=== PATIENT | female | born 1990 | race American Indian/Alaskan Native ===

== ENCOUNTER 2020-04-26 19:36 | Outpatient (CLI) | payer MEDICAID ==
[2020-04-26 20:04] VITALS: BP 140/69
== END 2020-04-26 21:10 | disposition home or self-care (01) ==
LOC: TRG 19:36 → APU 19:38 → TRG 21:10
PROVIDERS: ATTEND Obstetrics & Gynecology
DX: O02.89 Other abnormal products of conception (principal); Z3A.32 32 weeks gestation of pregnancy
CPT/HCPCS: 59025

== ENCOUNTER 2020-06-09 15:21 | Inpatient (IN) | payer MEDICAID ==
--- NOTE | 2020-06-09 15:38 | History and Physical Report ---
History of Present Illness Date of examination: 06/09/20 (pt sent from [facility] for delivery) Date of admission: 06/09/20 15:21 Chief complaint: Caller: Dr Clinton [place] Summary of Call: pt now has severe range BP Recommends admit and deliver L&D Chg Nurse notified of pt's admission Dr Story aware waiting for consult report from [facility] History of present illness: EDC Confirmation: 06/15/2020 Past History : 1 Term Births: 0 Premature Births: 0 Living Children: 0 Para: 0 Mult. Births: 0 Prev : 0 Aborta: 0 Elect. Ab: 0 Spont. Ab: 0 Ectopics: 0 Past Medical History: Reviewed history and no changes required: Negative Past Medical History Past Surgical History: negative Past Medical History Anesthesia Complications: negative Anemia: negative Autoimmune Disorder: negative Bleeding Disorder: negative Blood Transfusions: negative Breast Disease: negative Diabetes: negative Heart Disease: negative Hypertension: negative Hepatitis/Liver Disease: negative Kidney Disease/UTI: negative Neurologic/Epilepsy/Migraines: negative Phlebitis/Varicosities: negative Psychiatric: negative Pulmonary Disease/Asthma: negative Thyroid Disease: negative Hospitalizations: negative 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 of genital herpes: no Partner hx. of genital herpes: no Rash, Viral, or Febrile illness since last LMP? no Varicella/Chicken Pox Status: Unknown TB Risk: no Genetic History Congenital Heart Defect: Mom: no Dad: no Darlene Disease: Mom: no Dad: no Thalassemia Mom: no Dad: no Neural Tube Defect Mom: no Dad: no Down's Syndrome Mom: no Dad: no Gregory-Sachs Mom: no Dad: no Sickle Cell Disease/Trait Mom: no Dad: no Hemophilia Mom: no Dad: no Muscular Dystrophy Mom: no Dad: no Cystic Fibrosis Mom: no Dad: no Ogle Chorea Mom: no Dad: no Mental Retardation Mom: no Dad: no Fragile X Mom: no Dad: no Other Genetic/Chromosomal Disorder Mom: no Dad: no Child w/other defect Mom: no Dad: no Enviromental Exposures Xray Exposure: no Medication, drug, or alcohol use since LMP: no Chemical/Other Exposure: no Exposure to Cat Liter: no Hx of Parvovirus (Fifth Disease): no Occupational Exposure to Children: none Active Medications: None Current Allergies: No known allergies Past History - Obstetrical History Expected Date of Delivery: 06/15/20 Actual Gestation: 39 Week(s) 2 Day(s) : 1 Para: 0 Hx # Term Pregnancies: 0 Number of Pregnancies: 0 Spontaneous Abortions: 0 Induced : 0 Number of Living Children: 0 Medications and Allergies Allergies Allergy/AdvReac Type Severity Reaction Status Date / Time No Known Allergies Allergy Unverified 04/26/20 20:13 Home Medications Medication Instructions Recorded Confirmed Last Taken Type RX: No Known Home Medications [No 06/09/20 06/09/20 Unknown History Reported Home Medications] - Physical Exam Breasts: Cardiovascular: Regular rate, Normal S1, Normal S2 Abdomen: Positive: normal appearance, soft, normal bowel sounds. Negative: distention, tenderness Genitourinary (Female): Positive: normal external genitalia Vulva: both: normal Vagina: Positive: normal moisture. Negative: discharge Cervix: Negative: lesion, discharge Uterus: Positive: normal size, normal contour Adnexa: both: normal Anus/Rectum: Positive: normal perianal skin, heme negative. Negative: rectal mass, hemorrhoids Extremities: Positive: edema Deep Tendon Reflex Grade: Normal +2 - Obstetrical FHR: category 1 Uterine Contraction Monitor Mode: External Uterine Contraction Pattern: Irregular Uterine Tone Measurement Phase: Resting Uterine Contraction Intensity: Mild Results Result Diagrams: 06/09/20 16:32 06/09/20 16:32 All other labs normal. HBsAg Screen Negative Negative *1 RPR Non Reactive Non Reactive *2 Rubella Antibodies, IgG 11.50 index Immune >0.99 *3 Non-immune <0.90 Equivocal 0.90 - 0.99 Immune >0.99 ABO Grouping B *4 Rh Factor Positive *5 Please note: Prior records for this patient's ABO / Rh type are not available for additional verification. Antibody Screen Negative Negative *6 WBC 10.4 x10E3/uL 3.4-10.8 *7 RBC 4.38 x10E6/uL 3.77-5.28 *8 Hemoglobin 11.3 g/dL 11.1-15.9 *9 Hematocrit 36.5 % 34.0-46.6 *10 MCV 83 fL 79-97 *11 MCH [L] 25.8 pg 26.6-33.0 *12 MCHC [L] 31.0 g/dL 31.5-35.7 *13 RDW 14.9 % 11.7-15.4 *14 Platelets 263 x10E3/uL 150-450 *15 Neutrophils 72 % Not Estab. *16 Lymphs 21 % Not Estab. *17 Monocytes 6 % Not Estab. *18 Eos 1 % Not Estab. *19 Basos 0 % Not Estab. *20 ! Immature Cells <No Reported Value> *21 Neutrophils (Absolute) [H] 7.4 x10E3/uL 1.4-7.0 *22 Lymphs (Absolute) 2.2 x10E3/uL 0.7-3.1 *23 Monocytes(Absolute) 0.7 x10E3/uL 0.1-0.9 *24 Eos (Absolute) 0.2 x10E3/uL 0.0-0.4 *25 Baso (Absolute) 0.0 x10E3/uL 0.0-0.2 *26 ! Immature Granulocytes 0 % Not Estab. *27 ! Immature Grans (Abs) 0.0 x10E3/uL 0.0-0.1 *28 ! NRBC <No Reported Value> *29 Hematology Comments: <No Reported Value> *30 Tests: (2) HIV Ag/Ab with Reflex ([id number]) HIV Screen 4th Generation wRfx Non Reactive Non Reactive *31 Tests: (3) HCV Ab w/Rflx to Verification ([id number]) ! HCV Ab <0.1 s/co ratio 0.0-0.9 *32 Tests: (4) Comment: ([id number]) ! Comment: [facility] *33 Non reactive HCV antibody screen is consistent with no HCV infection, unless recent infection is suspected or other evidence exists to indicate HCV infection. Assessment and Plan Pt sent from [facility] office with severe range BP. Recommendation to delivery - start IOL. BPs found to be wnl. Will monitor, collect labs, and follow BP. Dr Story aware
[2020-06-09] MEDS ORDERED: ACETAMINOPHEN 325 MG TAB PO PRN (15:40)
[2020-06-09] MEDS ORDERED: LIDOCAINE (2%) 20 MG/1 ML VIAL 20 ML MDV INFILTRATI ONE (15:40)
[2020-06-09] MEDS ORDERED: MAGNESIUM SULFATE 4 GM/100 ML BAG IV ONE (15:40)
[2020-06-09] MEDS ORDERED: ONDANSETRON 4 MG/2 ML INJ IV PRN (15:40)
[2020-06-09] MEDS ORDERED: MINERAL OIL 30 ML ORAL LIQD PO PRN (15:40)
[2020-06-09] MEDS ORDERED: ePHEDrine SULFATE 50 MG/1 ML INJ IV PRN (15:40)
[2020-06-09] MEDS ORDERED: fentaNYL 100 MCG/2 ML INJ IV PRN (15:40)
[2020-06-09] MEDS ORDERED: TERBUTALINE 1 MG/1 ML INJ SUB-Q PRN (15:40)
[2020-06-09] MEDS ORDERED: LACTATED RINGERS 1,000 ML IV SCH (16:00)
[2020-06-09] MEDS ORDERED: MAGNESIUM SULFATE 40GM/1000ML 40 GM/1,000 ML BAG IV SCH (16:00)
[2020-06-09] MEDS ORDERED: OXYTOCIN DRIP 30 UNITS/500 ML BAG IV SCH (16:00)
[2020-06-09 17:08] LABS: Hematocrit 34.3 % (30.3-42.9); Hemoglobin 11.1 gm/dl (10.1-14.3); Mean Corpuscular HGB Conc 32 % (30-34); Mean Corpuscular Volume 80 fl (79-97); Platelet Count 231 K/mm3 (140-440); Red Blood Count 4.31 M/mm3 (3.65-5.03); Red Cell Distribution Width 16.2 % (13.2-15.2)
[2020-06-09 17:17] LABS: Alanine Aminotransferase 9 units/L (7-56); Albumin 3.5 g/dL (3.9-5); Blood Urea Nitrogen 7 mg/dL (7-17); Calcium 9.1 mg/dL (8.4-10.2); Hemolysis Index 7
[2020-06-09 17:18] LABS: BUN/Creatinine Ratio 12; Bilirubin,Direct < 0.2 mg/dL (0-0.2)
[2020-06-09 17:26] LABS: INR 0.98 (0.87-1.13)
[2020-06-09 17:27] LABS: Partial Thromboplastin Time 28.6 Sec. (24.2-36.6)
[2020-06-09] MEDS ORDERED: DINOPROSTONE 10 MG VAG SUPP VG ONE (20:00)
--- NOTE | 2020-06-09 20:20 | Event Note ---
Date: 06/09/20 Pt advised that due to her blood pressures being normal range and having no sx will hold magnesium at this time. Plan of care d/w pt and s/o. All questions were addressed and answered.
[2020-06-10] MEDS ORDERED: ZOLPIDEM 5 MG TAB PO PRN (00:20)
[2020-06-10] MEDS ORDERED: BUTORPHANOL 2 MG/1 ML INJ ONE (05:24)
[2020-06-10] MEDS ORDERED: BUTORPHANOL 2 MG/1 ML INJ IV PRN (05:33)
--- NOTE | 2020-06-10 07:35 | Progress Note ---
Assessment and Plan sitting on side of bed off monitor. Plan of care discussed for quick shower and meal. Plan to start pitocin 4mU x4mU @ 0800. pt given rubio. plan of care discussed with LEISA ISAACS. - Patient Problems (1) Gestational HTN Current Visit: Yes Status: Acute Qualifiers: Trimester: third trimester Qualified Code(s): O13.3 - Gestational [-induced] hypertension without significant proteinuria, third trimester (2) 39 weeks gestation of Current Visit: Yes Status: Acute (3) BMI 40.0-44.9, adult Current Visit: Yes Status: Acute Subjective - Subjective Date of service: 06/10/20 Principal diagnosis: IUP @ , IOL for GHTN Patient reports: movement normal, no new complaints Objective - Vital Signs Vital Signs: Vital Signs - 12hr 06/09/20 06/09/20 06/09/20 19:32 19:37 19:42 Temperature Pulse Rate 83 95 H 75 Respiratory Rate Blood Pressure O2 Sat by Pulse 100 99 99 Oximetry 06/09/20 06/09/20 06/09/20 19:45 19:47 19:52 Temperature Pulse Rate 82 81 72 Respiratory Rate Blood Pressure 134/70 O2 Sat by Pulse 99 100 Oximetry 06/09/20 06/09/20 06/09/20 19:57 20:02 20:07 Temperature Pulse Rate 85 85 79 Respiratory Rate Blood Pressure O2 Sat by Pulse 98 100 100 Oximetry 06/09/20 06/09/20 06/09/20 20:12 20:17 20:31 Temperature Pulse Rate 88 82 78 Respiratory Rate Blood Pressure O2 Sat by Pulse 100 96 99 Oximetry 06/09/20 06/09/20 06/09/20 20:36 20:41 20:43 Temperature Pulse Rate 94 H 74 70 Respiratory Rate Blood Pressure O2 Sat by Pulse 99 99 84 Oximetry 06/09/20 06/09/20 06/09/20 20:45 20:46 20:51 Temperature Pulse Rate 71 75 78 Respiratory Rate Blood Pressure 133/65 O2 Sat by Pulse 99 100 Oximetry 06/09/20 06/09/20 06/09/20 20:56 21:01 21:06 Temperature Pulse Rate 81 75 76 Respiratory Rate Blood Pressure O2 Sat by Pulse 100 99 100 Oximetry 06/09/20 06/09/20 06/09/20 21:11 21:16 21:21 Temperature Pulse Rate 77 74 84 Respiratory Rate Blood Pressure O2 Sat by Pulse 100 99 100 Oximetry 06/09/20 06/09/20 06/09/20 21:26 21:31 21:36 Temperature Pulse Rate 85 83 79 Respiratory Rate Blood Pressure O2 Sat by Pulse 99 100 99 Oximetry 06/09/20 06/09/20 06/09/20 21:41 21:46 21:51 Temperature Pulse Rate 78 78 79 Respiratory Rate Blood Pressure 117/62 O2 Sat by Pulse 99 99 99 Oximetry 06/09/20 06/09/20 06/09/20 21:56 22:01 22:06 Temperature Pulse Rate 78 75 70 Respiratory Rate Blood Pressure O2 Sat by Pulse 100 100 100 Oximetry 06/09/20 06/09/20 06/09/20 22:11 22:16 22:21 Temperature Pulse Rate 73 74 73 Respiratory Rate Blood Pressure O2 Sat by Pulse 100 100 100 Oximetry 06/09/20 06/09/20 06/09/20 22:26 22:31 22:36 Temperature Pulse Rate 74 75 72 Respiratory Rate Blood Pressure O2 Sat by Pulse 100 100 100 Oximetry 06/09/20 06/09/20 06/09/20 22:41 22:46 22:51 Temperature Pulse Rate 64 66 79 Respiratory Rate Blood Pressure 124/72 O2 Sat by Pulse 99 98 99 Oximetry 06/09/20 06/09/20 06/09/20 22:56 23:01 23:06 Temperature Pulse Rate 78 76 70 Respiratory Rate Blood Pressure O2 Sat by Pulse 100 100 99 Oximetry 06/09/20 06/09/20 06/09/20 23:16 23:21 23:26 Temperature Pulse Rate 72 75 72 Respiratory Rate Blood Pressure O2 Sat by Pulse 99 99 98 Oximetry 06/09/20 06/09/20 06/09/20 23:28 23:31 23:36 Temperature Pulse Rate 52 L 78 75 Respiratory Rate Blood Pressure O2 Sat by Pulse 82 L 100 99 Oximetry 06/09/20 06/09/20 06/09/20 23:41 23:46 23:51 Temperature Pulse Rate 74 80 79 Respiratory Rate Blood Pressure 127/64 O2 Sat by Pulse 98 100 99 Oximetry 06/09/20 06/10/20 06/10/20 23:56 00:01 00:45 Temperature Pulse Rate 91 H 72 73 Respiratory Rate Blood Pressure 122/90 O2 Sat by Pulse 87 98 Oximetry 06/10/20 06/10/20 06/10/20 00:56 01:47 02:45 Temperature 98.1 F Pulse Rate 67 136 H Respiratory 18 Rate Blood Pressure 119/66 133/78 O2 Sat by Pulse Oximetry - Exam Breasts: normal Cardiovascular: Regular rate Lungs: Clear to auscultation Abdomen: Present: normal appearance, soft - Labs Labs: Abnormal Labs 06/09/20 06/09/20 16:32 16:32 WBC 11.8 H MCH 26 L RDW 16.2 H Sodium 135 L Carbon Dioxide 20 L Alkaline Phosphatase 132 H Albumin 3.5 L Laboratory Results - last 24 hr 06/09/20 06/09/20 06/09/20 16:32 16:32 16:32 WBC 11.8 H RBC 4.31 Hgb 11.1 Hct 34.3 MCV 80 MCH 26 L MCHC 32 RDW 16.2 H Plt Count 231 PT 13.2 INR 0.98 APTT 28.6 Sodium 135 L Potassium 3.8 Chloride 100.4 Carbon Dioxide 20 L Anion Gap 18 BUN 7 Creatinine 0.6 Estimated GFR > 60 BUN/Creatinine Ratio 12 Glucose 78 Uric Acid Calcium 9.1 Total Bilirubin < 0.20 Direct Bilirubin < 0.2 Indirect Bilirubin 0.0 AST 11 ALT 9 Alkaline Phosphatase 132 H Total Protein 7.1 Albumin 3.5 L Albumin/Globulin Ratio 1.0 Syphilis IgG Antibody Blood Type Antibody Screen 06/09/20 06/09/20 06/09/20 16:32 16:32 16:32 WBC RBC Hgb Hct MCV MCH MCHC RDW Plt Count PT INR APTT Sodium Potassium Chloride Carbon Dioxide Anion Gap BUN Creatinine Estimated GFR BUN/Creatinine Ratio Glucose Uric Acid 4.5 Calcium Total Bilirubin Direct Bilirubin Indirect Bilirubin AST ALT Alkaline Phosphatase Total Protein Albumin Albumin/Globulin Ratio Syphilis IgG Antibody Nonreactive Blood Type B POSITIVE Antibody Screen Negative
[2020-06-10] MEDS ORDERED: OXYTOCIN DRIP 30 UNITS/500 ML BAG IV ONE (08:00)
[2020-06-10] MEDS: LACTATED RINGERS 1,000 ML IV SCH ×4 (08:33→17:55)
[2020-06-10] MEDS ORDERED: DEXMEDETOMIDINE 200 MCG/2 ML VIAL IV ONE ×2 (10:52→20:04)
[2020-06-10] MEDS ORDERED: NALOXONE 2 MG/2 ML INJ IV PRN (10:57)
[2020-06-10] MEDS ORDERED: ePHEDrine SULFATE 50 MG/1 ML INJ IV PRN (10:57)
--- NOTE | 2020-06-10 10:58 | Anesthesia Consultation ---
Anesthesia Consult and Med Hx Date of service: 06/10/20 - Airway Anesthetic Teeth Evaluation: Poor ROM Head & Neck: Adequate Mental/Hyoid Distance: Adequate Mallampati Class: Class III Intubation Access Assessment: Good - Pulmonary Exam CTA: Yes - Cardiac Exam Cardiac Exam: RRR - Pre-Operative Health Status ASA Pre-Surgery Classification: ASA3 Proposed Anesthetic Plan: Epidural - Pulmonary Hx Smoking: No Hx Asthma: No Hx Respiratory Symptoms: No SOB: No COPD: No Home Oxygen Therapy: No Hx Pneumonia: No Hx Sleep Apnea: No - Cardiovascular System Hx Hypertension: No Hx Coronary Artery Disease: No Hx Heart Attack/AMI: No Hx Angina: No Hx Percutaneous Transluminal Coronary Angioplasty (PTCA): No Hx Cardia Arrhythmia: No Hx Pacemaker: No Hx Internal Defibrillator: No Hx Valvular Heart Disease: No Hx Heart Murmur: No Hx Peripheral Vascular Disease: No - Central Nervous System Hx Neuromuscular Disorder: No Hx Seizures: No CVA: No Hx Back Pain: Yes Hx Psychiatric Problems: No - Gastrointestinal Hx Ulcer: No Hx Gastroesophageal Reflux Disease: No - Endocrine Hx Renal Disease: No Hx End Stage Renal Disease: No Hx Cirrhosis: No Hx Liver Disease: No Hx Insulin Dependent Diabetes: No Hx Non-Insulin Dependent Diabetes: No Hx Thyroid Disease: No Hx Hypothyroidism: No Hx Hyperthyroidism: No - Hematic Hx Anemia: No Hx Sickle Cell Disease: No - Other Systems Hx Alcohol Use: No Hx Substance Use: No Hx Cancer: No Hx Obesity: Yes
[2020-06-10] MEDS ORDERED: fentaNYL-BUPIV 2 MCG/ML-0.125% 200 MCG/100 ML BAG EPIDURAL SCH (11:00)
--- NOTE | 2020-06-10 12:39 | Progress Note ---
<DIXIE SONI - Last Filed: 06/10/20 12:38> Assessment and Plan - Patient Problems (1) Gestational HTN Current Visit: Yes Status: Acute Qualifiers: Trimester: third trimester Qualified Code(s): O13.3 - Gestational [-induced] hypertension without significant proteinuria, third trimester (2) 39 weeks gestation of Current Visit: Yes Status: Acute (3) BMI 40.0-44.9, adult Current Visit: Yes Status: Acute Subjective - Subjective Date of service: 06/10/20 Principal diagnosis: IUP @ , IOL for GHTN Patient reports: movement normal, no new complaints (comfortable with epidural) Objective - Vital Signs Vital Signs: Vital Signs - 12hr 06/10/20 06/10/20 06/10/20 00:45 00:56 01:47 Temperature 98.1 F Pulse Rate 73 67 Respiratory 18 Rate Blood Pressure 122/90 119/66 O2 Sat by Pulse Oximetry 06/10/20 06/10/20 06/10/20 02:45 08:18 08:20 Temperature 98.4 F Pulse Rate 136 H 76 80 Respiratory 18 Rate Blood Pressure 133/78 132/75 O2 Sat by Pulse 99 Oximetry 06/10/20 06/10/20 06/10/20 08:26 08:31 08:35 Temperature Pulse Rate 94 H 88 76 Respiratory Rate Blood Pressure O2 Sat by Pulse 100 99 100 Oximetry 06/10/20 06/10/20 06/10/20 08:40 08:45 08:50 Temperature Pulse Rate 81 72 72 Respiratory Rate Blood Pressure O2 Sat by Pulse 100 99 99 Oximetry 06/10/20 06/10/20 06/10/20 08:55 09:00 09:05 Temperature Pulse Rate 104 H 88 80 Respiratory Rate Blood Pressure O2 Sat by Pulse 100 100 100 Oximetry 06/10/20 06/10/20 06/10/20 09:21 09:53 10:13 Temperature Pulse Rate 94 H 83 82 Respiratory Rate Blood Pressure 120/63 125/62 O2 Sat by Pulse 98 Oximetry 06/10/20 06/10/20 06/10/20 10:19 10:23 10:29 Temperature Pulse Rate 77 83 79 Respiratory Rate Blood Pressure 134/99 O2 Sat by Pulse 100 96 99 Oximetry 06/10/20 06/10/20 06/10/20 10:34 10:39 10:44 Temperature Pulse Rate 76 79 74 Respiratory Rate Blood Pressure O2 Sat by Pulse 98 99 98 Oximetry 06/10/20 06/10/20 06/10/20 10:49 10:52 10:54 Temperature Pulse Rate 71 73 75 Respiratory Rate Blood Pressure 136/85 O2 Sat by Pulse 100 99 Oximetry 06/10/20 06/10/20 06/10/20 11:05 11:08 11:10 Temperature Pulse Rate 85 69 45 L Respiratory Rate Blood Pressure O2 Sat by Pulse 100 79 L 83 L Oximetry 06/10/20 06/10/20 06/10/20 11:12 11:14 11:15 Temperature Pulse Rate 81 84 86 Respiratory Rate Blood Pressure 132/66 119/57 O2 Sat by Pulse 100 Oximetry 06/10/20 06/10/20 06/10/20 11:16 11:18 11:20 Temperature Pulse Rate 91 H 88 102 H Respiratory Rate Blood Pressure 118/60 109/59 O2 Sat by Pulse 83 L 100 Oximetry 06/10/20 06/10/20 06/10/20 11:21 11:23 11:24 Temperature Pulse Rate 116 H 111 H 91 H Respiratory Rate Blood Pressure 109/55 117/55 102/54 O2 Sat by Pulse 83 L Oximetry 06/10/20 06/10/20 06/10/20 11:25 11:26 11:29 Temperature Pulse Rate 92 H 85 90 Respiratory Rate Blood Pressure 108/56 95/54 O2 Sat by Pulse 97 Oximetry 06/10/20 06/10/20 06/10/20 11:30 11:35 11:39 Temperature Pulse Rate 86 82 72 Respiratory Rate Blood Pressure 101/51 94/53 O2 Sat by Pulse 98 99 Oximetry 06/10/20 06/10/20 06/10/20 11:40 11:42 11:45 Temperature Pulse Rate 79 80 76 Respiratory Rate Blood Pressure 89/46 96/54 O2 Sat by Pulse 99 98 Oximetry 06/10/20 06/10/20 06/10/20 11:47 11:49 11:50 Temperature Pulse Rate 77 77 92 H Respiratory Rate Blood Pressure 89/47 91/50 O2 Sat by Pulse 98 Oximetry 06/10/20 06/10/20 06/10/20 11:52 11:55 12:00 Temperature Pulse Rate 65 69 68 Respiratory Rate Blood Pressure 92/52 O2 Sat by Pulse 100 100 Oximetry 06/10/20 06/10/20 06/10/20 12:03 12:13 12:18 Temperature Pulse Rate 68 77 77 Respiratory Rate Blood Pressure 95/53 97/57 O2 Sat by Pulse 89 98 98 Oximetry 06/10/20 06/10/20 06/10/20 12:23 12:24 12:28 Temperature Pulse Rate 74 71 81 Respiratory Rate Blood Pressure 102/57 O2 Sat by Pulse 100 100 Oximetry 06/10/20 06/10/20 06/10/20 12:33 12:34 12:38 Temperature Pulse Rate 72 68 71 Respiratory Rate Blood Pressure 120/59 O2 Sat by Pulse 100 100 Oximetry - Labs Labs: Abnormal Labs 06/09/20 06/09/20 16:32 16:32 WBC 11.8 H MCH 26 L RDW 16.2 H Sodium 135 L Carbon Dioxide 20 L Alkaline Phosphatase 132 H Albumin 3.5 L Laboratory Results - last 24 hr 06/09/20 06/09/20 06/09/20 16:32 16:32 16:32 WBC 11.8 H RBC 4.31 Hgb 11.1 Hct 34.3 MCV 80 MCH 26 L MCHC 32 RDW 16.2 H Plt Count 231 PT 13.2 INR 0.98 APTT 28.6 Sodium 135 L Potassium 3.8 Chloride 100.4 Carbon Dioxide 20 L Anion Gap 18 BUN 7 Creatinine 0.6 Estimated GFR > 60 BUN/Creatinine Ratio 12 Glucose 78 Uric Acid Calcium 9.1 Total Bilirubin < 0.20 Direct Bilirubin < 0.2 Indirect Bilirubin 0.0 AST 11 ALT 9 Alkaline Phosphatase 132 H Total Protein 7.1 Albumin 3.5 L Albumin/Globulin Ratio 1.0 Syphilis IgG Antibody Blood Type Antibody Screen 06/09/20 06/09/20 06/09/20 16:32 16:32 16:32 WBC RBC Hgb Hct MCV MCH MCHC RDW Plt Count PT INR APTT Sodium Potassium Chloride Carbon Dioxide Anion Gap BUN Creatinine Estimated GFR BUN/Creatinine Ratio Glucose Uric Acid 4.5 Calcium Total Bilirubin Direct Bilirubin Indirect Bilirubin AST ALT Alkaline Phosphatase Total Protein Albumin Albumin/Globulin Ratio Syphilis IgG Antibody Nonreactive Blood Type B POSITIVE Antibody Screen Negative <REEMA MG - Last Filed: 06/10/20 12:50> Objective - Vital Signs Vital Signs: Vital Signs - 12hr 06/10/20 06/10/20 06/10/20 00:56 01:47 02:45 Temperature 98.1 F Pulse Rate 67 136 H Respiratory 18 Rate Blood Pressure 119/66 133/78 O2 Sat by Pulse Oximetry 06/10/20 06/10/20 06/10/20 08:18 08:20 08:26 Temperature 98.4 F Pulse Rate 76 80 94 H Respiratory 18 Rate Blood Pressure 132/75 O2 Sat by Pulse 99 100 Oximetry 06/10/20 06/10/20 06/10/20 08:31 08:35 08:40 Temperature Pulse Rate 88 76 81 Respiratory Rate Blood Pressure O2 Sat by Pulse 99 100 100 Oximetry 06/10/20 06/10/20 06/10/20 08:45 08:50 08:55 Temperature Pulse Rate 72 72 104 H Respiratory Rate Blood Pressure O2 Sat by Pulse 99 99 100 Oximetry 06/10/20 06/10/20 06/10/20 09:00 09:05 09:21 Temperature Pulse Rate 88 80 94 H Respiratory Rate Blood Pressure 120/63 O2 Sat by Pulse 100 100 Oximetry 06/10/20 06/10/20 06/10/20 09:53 10:13 10:19 Temperature Pulse Rate 83 82 77 Respiratory Rate Blood Pressure 125/62 O2 Sat by Pulse 98 100 Oximetry 06/10/20 06/10/20 06/10/20 10:23 10:29 10:34 Temperature Pulse Rate 83 79 76 Respiratory Rate Blood Pressure 134/99 O2 Sat by Pulse 96 99 98 Oximetry 06/10/20 06/10/20 06/10/20 10:39 10:44 10:49 Temperature Pulse Rate 79 74 71 Respiratory Rate Blood Pressure O2 Sat by Pulse 99 98 100 Oximetry 06/10/20 06/10/20 06/10/20 10:52 10:54 11:05 Temperature Pulse Rate 73 75 85 Respiratory Rate Blood Pressure 136/85 O2 Sat by Pulse 99 100 Oximetry 06/10/20 06/10/20 06/10/20 11:08 11:10 11:12 Temperature Pulse Rate 69 45 L 81 Respiratory Rate Blood Pressure 132/66 O2 Sat by Pulse 79 L 83 L Oximetry 06/10/20 06/10/20 06/10/20 11:14 11:15 11:16 Temperature Pulse Rate 84 86 91 H Respiratory Rate Blood Pressure 119/57 118/60 O2 Sat by Pulse 100 83 L Oximetry 06/10/20 06/10/20 06/10/20 11:18 11:20 11:21 Temperature Pulse Rate 88 102 H 116 H Respiratory Rate Blood Pressure 109/59 109/55 O2 Sat by Pulse 100 Oximetry 06/10/20 06/10/20 06/10/20 11:23 11:24 11:25 Temperature Pulse Rate 111 H 91 H 92 H Respiratory Rate Blood Pressure 117/55 102/54 O2 Sat by Pulse 83 L 97 Oximetry 06/10/20 06/10/20 06/10/20 11:26 11:29 11:30 Temperature Pulse Rate 85 90 86 Respiratory Rate Blood Pressure 108/56 95/54 101/51 O2 Sat by Pulse 98 Oximetry 06/10/20 06/10/20 06/10/20 11:35 11:39 11:40 Temperature Pulse Rate 82 72 79 Respiratory Rate Blood Pressure 94/53 89/46 O2 Sat by Pulse 99 99 Oximetry 06/10/20 06/10/20 06/10/20 11:42 11:45 11:47 Temperature Pulse Rate 80 76 77 Respiratory Rate Blood Pressure 96/54 89/47 O2 Sat by Pulse 98 Oximetry 06/10/20 06/10/20 06/10/20 11:49 11:50 11:52 Temperature Pulse Rate 77 92 H 65 Respiratory Rate Blood Pressure 91/50 92/52 O2 Sat by Pulse 98 Oximetry 06/10/20 06/10/20 06/10/20 11:55 12:00 12:03 Temperature Pulse Rate 69 68 68 Respiratory Rate Blood Pressure 95/53 O2 Sat by Pulse 100 100 89 Oximetry 06/10/20 06/10/20 06/10/20 12:13 12:18 12:23 Temperature Pulse Rate 77 77 74 Respiratory Rate Blood Pressure 97/57 O2 Sat by Pulse 98 98 100 Oximetry 06/10/20 06/10/20 06/10/20 12:24 12:28 12:33 Temperature Pulse Rate 71 81 72 Respiratory Rate Blood Pressure 102/57 O2 Sat by Pulse 100 100 Oximetry 06/10/20 06/10/20 06/10/20 12:34 12:38 12:43 Temperature Pulse Rate 68 71 68 Respiratory Rate Blood Pressure 120/59 124/57 O2 Sat by Pulse 100 100 Oximetry 06/10/20 12:48 Temperature Pulse Rate 69 Respiratory Rate Blood Pressure O2 Sat by Pulse 98 Oximetry - Labs Labs: Abnormal Labs 06/09/20 06/09/20 16:32 16:32 WBC 11.8 H MCH 26 L RDW 16.2 H Sodium 135 L Carbon Dioxide 20 L Alkaline Phosphatase 132 H Albumin 3.5 L Laboratory Results - last 24 hr 06/09/20 06/09/20 06/09/20 16:32 16:32 16:32 WBC 11.8 H RBC 4.31 Hgb 11.1 Hct 34.3 MCV 80 MCH 26 L MCHC 32 RDW 16.2 H Plt Count 231 PT 13.2 INR 0.98 APTT 28.6 Sodium 135 L Potassium 3.8 Chloride 100.4 Carbon Dioxide 20 L Anion Gap 18 BUN 7 Creatinine 0.6 Estimated GFR > 60 BUN/Creatinine Ratio 12 Glucose 78 Uric Acid Calcium 9.1 Total Bilirubin < 0.20 Direct Bilirubin < 0.2 Indirect Bilirubin 0.0 AST 11 ALT 9 Alkaline Phosphatase 132 H Total Protein 7.1 Albumin 3.5 L Albumin/Globulin Ratio 1.0 Syphilis IgG Antibody Blood Type Antibody Screen 06/09/20 06/09/20 06/09/20 16:32 16:32 16:32 WBC RBC Hgb Hct MCV MCH MCHC RDW Plt Count PT INR APTT Sodium Potassium Chloride Carbon Dioxide Anion Gap BUN Creatinine Estimated GFR BUN/Creatinine Ratio Glucose Uric Acid 4.5 Calcium Total Bilirubin Direct Bilirubin Indirect Bilirubin AST ALT Alkaline Phosphatase Total Protein Albumin Albumin/Globulin Ratio Syphilis IgG Antibody Nonreactive Blood Type B POSITIVE Antibody Screen Negative
--- NOTE | 2020-06-10 13:26 | Progress Note ---
Assessment and Plan Patient checked previously , comfortable with epidural. AROM - thick mec. IUPC and ISE placed without difficulty and functioning well. continue titrating pitocin as needed. Anticipate delivery. - Patient Problems (1) Gestational HTN Current Visit: Yes Status: Acute Qualifiers: Trimester: third trimester Qualified Code(s): O13.3 - Gestational [-induced] hypertension without significant proteinuria, third trimester Plan to address problem: pt denies s/s pre-e VSSAF continue to monitor (2) 39 weeks gestation of Current Visit: Yes Status: Acute (3) BMI 40.0-44.9, adult Current Visit: Yes Status: Acute Subjective - Subjective Date of service: 06/10/20 Principal diagnosis: IUP @ 39+2; IOL for GHTN Patient reports: movement normal, no new complaints (comfortable with epidural) Objective - Vital Signs Vital Signs: Vital Signs - 12hr 06/10/20 06/10/20 06/10/20 01:47 02:45 08:18 Temperature 98.4 F Pulse Rate 67 136 H 76 Respiratory 18 Rate Blood Pressure 119/66 133/78 132/75 O2 Sat by Pulse Oximetry 06/10/20 06/10/20 06/10/20 08:20 08:26 08:31 Temperature Pulse Rate 80 94 H 88 Respiratory Rate Blood Pressure O2 Sat by Pulse 99 100 99 Oximetry 06/10/20 06/10/20 06/10/20 08:35 08:40 08:45 Temperature Pulse Rate 76 81 72 Respiratory Rate Blood Pressure O2 Sat by Pulse 100 100 99 Oximetry 06/10/20 06/10/20 06/10/20 08:50 08:55 09:00 Temperature Pulse Rate 72 104 H 88 Respiratory Rate Blood Pressure O2 Sat by Pulse 99 100 100 Oximetry 06/10/20 06/10/20 06/10/20 09:05 09:21 09:53 Temperature Pulse Rate 80 94 H 83 Respiratory Rate Blood Pressure 120/63 125/62 O2 Sat by Pulse 100 Oximetry 06/10/20 06/10/20 06/10/20 10:13 10:19 10:23 Temperature Pulse Rate 82 77 83 Respiratory Rate Blood Pressure 134/99 O2 Sat by Pulse 98 100 96 Oximetry 06/10/20 06/10/20 06/10/20 10:29 10:34 10:39 Temperature Pulse Rate 79 76 79 Respiratory Rate Blood Pressure O2 Sat by Pulse 99 98 99 Oximetry 06/10/20 06/10/20 06/10/20 10:44 10:49 10:52 Temperature Pulse Rate 74 71 73 Respiratory Rate Blood Pressure 136/85 O2 Sat by Pulse 98 100 Oximetry 06/10/20 06/10/20 06/10/20 10:54 11:05 11:08 Temperature Pulse Rate 75 85 69 Respiratory Rate Blood Pressure O2 Sat by Pulse 99 100 79 L Oximetry 06/10/20 06/10/20 06/10/20 11:10 11:12 11:14 Temperature Pulse Rate 45 L 81 84 Respiratory Rate Blood Pressure 132/66 119/57 O2 Sat by Pulse 83 L Oximetry 06/10/20 06/10/20 06/10/20 11:15 11:16 11:18 Temperature Pulse Rate 86 91 H 88 Respiratory Rate Blood Pressure 118/60 109/59 O2 Sat by Pulse 100 83 L Oximetry 06/10/20 06/10/20 06/10/20 11:20 11:21 11:23 Temperature Pulse Rate 102 H 116 H 111 H Respiratory Rate Blood Pressure 109/55 117/55 O2 Sat by Pulse 100 83 L Oximetry 06/10/20 06/10/20 06/10/20 11:24 11:25 11:26 Temperature Pulse Rate 91 H 92 H 85 Respiratory Rate Blood Pressure 102/54 108/56 O2 Sat by Pulse 97 Oximetry 06/10/20 06/10/20 06/10/20 11:29 11:30 11:35 Temperature Pulse Rate 90 86 82 Respiratory Rate Blood Pressure 95/54 101/51 O2 Sat by Pulse 98 99 Oximetry 06/10/20 06/10/20 06/10/20 11:39 11:40 11:42 Temperature Pulse Rate 72 79 80 Respiratory Rate Blood Pressure 94/53 89/46 96/54 O2 Sat by Pulse 99 Oximetry 06/10/20 06/10/20 06/10/20 11:45 11:47 11:49 Temperature Pulse Rate 76 77 77 Respiratory Rate Blood Pressure 89/47 91/50 O2 Sat by Pulse 98 Oximetry 06/10/20 06/10/20 06/10/20 11:50 11:52 11:55 Temperature Pulse Rate 92 H 65 69 Respiratory Rate Blood Pressure 92/52 O2 Sat by Pulse 98 100 Oximetry 06/10/20 06/10/20 06/10/20 12:00 12:03 12:13 Temperature Pulse Rate 68 68 77 Respiratory Rate Blood Pressure 95/53 97/57 O2 Sat by Pulse 100 89 98 Oximetry 06/10/20 06/10/20 06/10/20 12:18 12:23 12:24 Temperature Pulse Rate 77 74 71 Respiratory Rate Blood Pressure 102/57 O2 Sat by Pulse 98 100 Oximetry 06/10/20 06/10/20 06/10/20 12:28 12:33 12:34 Temperature Pulse Rate 81 72 68 Respiratory Rate Blood Pressure 120/59 O2 Sat by Pulse 100 100 Oximetry 06/10/20 06/10/20 06/10/20 12:38 12:43 12:48 Temperature Pulse Rate 71 68 69 Respiratory Rate Blood Pressure 124/57 O2 Sat by Pulse 100 100 98 Oximetry 06/10/20 06/10/20 06/10/20 12:53 12:54 12:58 Temperature Pulse Rate 60 76 Respiratory Rate Blood Pressure 114/59 O2 Sat by Pulse 82 L 100 Oximetry 06/10/20 06/10/20 06/10/20 13:03 13:08 13:13 Temperature Pulse Rate 66 72 71 Respiratory Rate Blood Pressure 112/59 109/58 O2 Sat by Pulse 100 100 100 Oximetry 06/10/20 13:18 Temperature Pulse Rate 78 Respiratory Rate Blood Pressure O2 Sat by Pulse 100 Oximetry - Exam Breasts: normal Cardiovascular: Regular rate Lungs: Normal air movement Abdomen: Present: normal appearance, soft Vulva: both: normal Uterus: Present: normal FHR: category 2 Uterine Contraction Monitor Mode: Internal Uterine Contraction Pattern: Regular Uterine Tone Measurement Phase: Contraction Uterine Contraction Intensity: Strong/Firm Extremities: normal Deep Tendon Reflex Grade: Normal +2 - Labs Labs: Abnormal Labs 06/09/20 06/09/20 16:32 16:32 WBC 11.8 H MCH 26 L RDW 16.2 H Sodium 135 L Carbon Dioxide 20 L Alkaline Phosphatase 132 H Albumin 3.5 L Laboratory Results - last 24 hr 06/09/20 06/09/20 06/09/20 16:32 16:32 16:32 WBC 11.8 H RBC 4.31 Hgb 11.1 Hct 34.3 MCV 80 MCH 26 L MCHC 32 RDW 16.2 H Plt Count 231 PT 13.2 INR 0.98 APTT 28.6 Sodium 135 L Potassium 3.8 Chloride 100.4 Carbon Dioxide 20 L Anion Gap 18 BUN 7 Creatinine 0.6 Estimated GFR > 60 BUN/Creatinine Ratio 12 Glucose 78 Uric Acid Calcium 9.1 Total Bilirubin < 0.20 Direct Bilirubin < 0.2 Indirect Bilirubin 0.0 AST 11 ALT 9 Alkaline Phosphatase 132 H Total Protein 7.1 Albumin 3.5 L Albumin/Globulin Ratio 1.0 Syphilis IgG Antibody Blood Type Antibody Screen 06/09/20 06/09/20 06/09/20 16:32 16:32 16:32 WBC RBC Hgb Hct MCV MCH MCHC RDW Plt Count PT INR APTT Sodium Potassium Chloride Carbon Dioxide Anion Gap BUN Creatinine Estimated GFR BUN/Creatinine Ratio Glucose Uric Acid 4.5 Calcium Total Bilirubin Direct Bilirubin Indirect Bilirubin AST ALT Alkaline Phosphatase Total Protein Albumin Albumin/Globulin Ratio Syphilis IgG Antibody Nonreactive Blood Type B POSITIVE Antibody Screen Negative
[2020-06-10] MEDS ORDERED: SODIUM CHLORIDE 0.9% 1000 ML 1,000 ML VG SCH (13:45)
[2020-06-10] MEDS ORDERED: BUPIVACAINE/PF (0.25%) 2.5 MG/ML 10 ML VIAL INFILTRATI ONE (15:28)
[2020-06-10] MEDS ORDERED: FAMOTIDINE 20 MG/2 ML INJ IV SCH (17:54)
--- NOTE | 2020-06-10 17:58 | Event Note ---
Date: 06/10/20 Patient comfortable with epidural. Cervical exam was done revealed about 8-1/2 cm dilated 100% effaced and 0 station. Patient is tracing is a category 2. Discussed with patient concern about the recurrent decelerations some of them down to 80 with a fetus and high station and appears to be swelling of her cervix. Discussed indication for operative delivery. Patient informed the risks of the surgery include bleeding possibly bleeding heavy enough to require blood transfusion, infection possible damage to bowel bladder ureter. All quest ions answered. Patient agrees to proceed if decelerations continue.
[2020-06-10] MEDS ORDERED: LIDOCAINE MPF (2%) 20 MG/1 ML VIAL 5 ML ONE ×2 (17:59→19:31)
[2020-06-10] MEDS ORDERED: ceFAZolin/Water 2 GM/20 ML 2 GM/20 ML SYRINGE IV ONE (18:12)
--- NOTE | 2020-06-10 18:19 | Progress Note ---
Labor Epidural - Labor Epidural Start Time: 11:05 Stop Time: 11:11 Performed by:: ROSEMARIE PAPPAS Procedure: Patient is requesting a laboring epidural for laboring pain. Patient IDed, H&P reviewed, all questions and concerns were answered, and consent was signed. Timeout was performed at bedside. Patient in sitting position. Sterile prep and drape was performed. [] ml of 1% lidocaine skin wheal at L[]- L []. 18- gauge Touhy epidural needle was advanced to loss of resistance with air technique to 7cm. Negative CSF negative blood via Tuohy needle. #27g Spinal needle clear, free flowing CSF, Pecedex 10 mcg. Epidural catheter advanced to [12] centimeters. [Negative] Aspiration [Negative] test dose. Sterile dressing applied. Patient tolerated procedure.
--- NOTE | 2020-06-10 18:20 | Anesthesia Day of Surgery ---
Anesthesia Day of Surgery - Day of Surgery Patient Examined: Yes Patient H&P Reviewed: Yes Patient is NPO: Yes Beta Blockers: No Cardiac Clearance: No Pulmonary Clearance: No Damien's Test: N/A
[2020-06-10] MEDS ORDERED: ONDANSETRON 4 MG/2 ML INJ IV PRN ×2 (18:44→23:49)
[2020-06-10] MEDS ORDERED: METOCLOPRAMIDE 10 MG/2 ML INJ IV SCH (18:54)
[2020-06-10] MEDS ORDERED: BICITRA ORAL LIQD 30ML PO ONE (18:54)
[2020-06-10] MEDS ORDERED: KETOROLAC 30 MG/1 ML INJ ONE (19:03)
[2020-06-10] MEDS ORDERED: ONDANSETRON 4 MG/2 ML INJ ONE (19:03)
[2020-06-10] MEDS ORDERED: SODIUM CHLORIDE 0.9% IRR 1,500 ML BOTTLE IR ONE (19:30)
[2020-06-10] MEDS ORDERED: WATER FOR IRRIG STERILE 1,500 ML BOTTLE IR ONE (19:30)
[2020-06-10] MEDS ORDERED: ceFAZolin 1 GM VIAL ONE (19:37)
[2020-06-10] MEDS ORDERED: MIDAZOLAM 2 MG/2 ML INJ ONE ×2 (19:56)
[2020-06-10] MEDS ORDERED: fentaNYL 100 MCG/2 ML INJ ONE (20:37)
--- NOTE | 2020-06-10 20:55 | Operative Report ---
Operative Report Operative Report: Date of procedure: June 10, 2020 Pre-operative diagnosis: Intrauterine at 39 weeks, with failure of induction of labor, nonreassuring heart tones, gestational hypertension and a body mass index 40.6 Post-operative diagnosis: Same Procedure name(s): Primary low-transverse section Surgeon: Jarvis Maria MD Tobacco Sample Puller: Tania Mukherjee CST Anesthesia: Epidural EBL: 800 cc Complications: None Findings: Patient with a normal uterus tubes and ovaries bilaterally. Male weight 6 pounds 2 ounces Apgars 8 at 1 minute and 9 at 5 minutes. Specimen(s): None Procedure: The patient was brought to the operating room. Her epidural was dosed was placed without any complications. She was then placed in left lateral tilt. Prepped and draped in the usual sterile manner. After testing for adequate anesthesia level, a Pfannenstiel incision was made. This incision was taken down to the fascia. The fascia was then nicked in the midline. This incision was extended out laterally with Hayden scissors. The fascia was then sharply and bluntly from the underlying rectus muscles. The rectus muscles were bluntly and sharply . The peritoneum was then entered with the metal bending machine operator's fingers. This incision was spread vertically with care not to damage the bladder below. The Truong self-retaining tractor was then placed without any difficulty. The bladder flap was then formed sharply and bluntly with Metzenbaum scissors. A transverse incision was made in lower uterine segment. This incision was extended laterally with the operators fingers. The amniotic sac was then entered bluntly with the metal bending machine operator's fingers. The was delivered from the vertex position. Bulb suction on the mother's abdomen. Cord was double clamped and cut. The was then passed to the nursery personnel who were in attendance. The above scores were given by the nursery personnel. The placenta was then bluntly removed. The uterus was then externalized and wiped clean the remaining products. The uterine incision was closed in layers. The first incision was closed in a locking manner using 0 Vicryl. This was followed by imbricating stitch also with 0 Vicryl. This closure was hemostatic. The bladder flap was copiously irrigated and found to be hemostatic. The pelvis was copiously irrigated and found to be hemostatic. The uterus was then placed back to the patient's abdomen. The retractors were removed. The rectus muscles were inspected and found to be hemostatic after additional Bovie. Surgicel was placed over the area of bleeding on the rectus muscles. The fascia was then closed in a running manner using 0 Vicryl. This incision was hemostatic irrigation Bovie. The skin was reapproximated with 4-0 Vicryl subcuticularly. Dermabond was placed on the closure. The patient tolerated procedure well. Her urine was clear. The was admitted to the well baby nursery. The patient was accompanied to recovery room in good condition. Instrument count correct times 3.
[2020-06-10] MEDS: HYDROmorphone 1 MG/1 ML INJ IV PRN ×2 (21:27→21:37)
[2020-06-10] MEDS ORDERED: HYDROCORTISONE 25 MG RECTAL SUPP PR PRN (23:49)
[2020-06-10] MEDS ORDERED: OXYTOCIN DRIP 30 UNITS/500 ML BAG IV SCH (23:49)
[2020-06-10] MEDS ORDERED: LANOLIN/ZINC/DIMETHICONE (LANSINOH) 7 GM TP PRN (23:49)
[2020-06-10] MEDS ORDERED: D5W/LACTATED RINGERS 1,000 ML IV SCH (23:49)
[2020-06-10] MEDS ORDERED: NALOXONE 0.4 MG/1 ML INJ IV PRN (23:49)
[2020-06-10] MEDS ORDERED: SIMETHICONE 80 MG CHEW TAB PO PRN (23:49)
[2020-06-10] MEDS ORDERED: MAGNESIUM HYDROXIDE (MOM) ORAL LIQD UDC PO PRN (23:49)
[2020-06-10] MEDS ORDERED: WITCH HAZEL/ GLYCERIN PAD TP PRN (23:49)
[2020-06-11] MEDS: KETOROLAC 30 MG/1 ML INJ IV SCH ×5 (00:42→18:01)
[2020-06-11] MEDS: ceFAZolin/NS 1 GM/50 ML 1 GM/50 ML BAG IV SCH ×2 (01:29→10:48)
[2020-06-11] MEDS: HYDROcodone/ACETAMINOPHEN 5-325 MG TAB PO PRN ×4 (01:38→23:30)
[2020-06-11] MEDS ORDERED: MORPHINE 4 MG/1 ML INJ IV ONE (04:47)
--- NOTE | 2020-06-11 08:45 | Progress Note ---
Assessment and Plan A: 29 y.o. s/p primary d/t failed IOL. Post op 12 hours. Pain not controlled by pain medication. P: Continue with care. Advance diet as tolerate. Pain medication changed to 2 Larimer tablets. RN aware. Will reassess. Anticipate discharge home in the AM. Subjective - Subjective Date of service: 06/11/20 (Pt states pain medication not helping.) Principal diagnosis: s/p primary for failed IOL Patient reports: pain poorly controlled : doing well Objective - Vital Signs Latest vital signs: Vital Signs Temp Pulse Resp BP BP Pulse Ox 06/11/20 07:52 20 06/11/20 07:35 98.4 F 85 20 113/59 100 06/11/20 04:35 98.3 F 82 18 118/62 98 06/10/20 22:05 98.1 F 99 H 16 106/70 99 06/10/20 21:50 78 16 124/58 100 06/10/20 21:35 82 16 118/61 99 06/10/20 21:20 78 22 107/53 100 06/10/20 21:05 95 H 16 125/71 100 06/10/20 21:01 79 12 127/57 100 06/10/20 20:58 80 14 128/80 100 06/10/20 20:49 98.6 F 74 14 127/73 99 06/10/20 18:19 93 H 128/69 06/10/20 18:05 85 149/78 06/10/20 17:59 80 100 06/10/20 17:54 91 H 100 06/10/20 17:51 82 0 L 06/10/20 17:49 75 127/65 100 06/10/20 17:44 84 100 06/10/20 17:39 76 100 06/10/20 17:35 75 130/67 06/10/20 17:34 82 100 06/10/20 17:29 76 100 06/10/20 17:24 85 100 06/10/20 17:20 96 H 85 06/10/20 17:19 83 118/56 100 06/10/20 17:14 10 L 06/10/20 17:13 10 L 06/10/20 17:04 106 H 141/75 100 06/10/20 16:59 120 H 65 L 06/10/20 16:54 89 100 06/10/20 16:49 85 119/60 100 06/10/20 16:44 80 100 06/10/20 16:39 89 100 06/10/20 16:38 97.8 F 18 06/10/20 16:36 80 123/58 06/10/20 16:34 79 100 06/10/20 16:29 89 100 06/10/20 16:24 79 100 06/10/20 16:20 77 112/59 06/10/20 16:19 79 100 06/10/20 16:14 81 100 06/10/20 16:09 86 100 06/10/20 16:04 85 119/63 100 06/10/20 15:59 84 100 06/10/20 15:54 82 100 06/10/20 15:49 93 H 128/70 100 06/10/20 15:44 89 100 06/10/20 15:39 87 100 06/10/20 15:34 95 H 151/70 100 06/10/20 15:29 97 H 100 06/10/20 15:24 97 H 100 06/10/20 15:21 94 H 117/67 06/10/20 15:19 93 H 100 06/10/20 15:17 57 L 06/10/20 15:13 94 H 100 06/10/20 15:08 103 H 100 06/10/20 15:04 100 H 132/71 06/10/20 15:03 100 H 100 06/10/20 14:58 91 H 100 06/10/20 14:53 96 H 100 06/10/20 14:49 96 H 128/63 06/10/20 14:48 98 H 100 06/10/20 14:43 94 H 100 06/10/20 14:38 103 H 100 06/10/20 14:34 99 H 119/57 06/10/20 14:33 98 H 100 06/10/20 14:28 92 H 100 06/10/20 14:23 92 H 100 06/10/20 14:18 122 H 99 06/10/20 14:13 79 100 06/10/20 14:08 121 H 100 06/10/20 14:03 87 100 06/10/20 14:00 97.7 F 20 06/10/20 13:58 97 H 100 06/10/20 13:53 78 100 06/10/20 13:51 78 117/63 06/10/20 13:49 61 L 06/10/20 13:48 82 99 06/10/20 13:43 88 100 06/10/20 13:38 101 H 100 06/10/20 13:34 74 128/57 06/10/20 13:33 78 100 06/10/20 13:27 105 H 100 06/10/20 13:23 76 117/65 100 06/10/20 13:18 78 100 06/10/20 13:13 71 109/58 100 06/10/20 13:08 72 100 06/10/20 13:03 66 112/59 100 06/10/20 12:58 76 100 06/10/20 12:54 60 114/59 06/10/20 12:53 82 L 06/10/20 12:48 69 98 06/10/20 12:43 68 124/57 100 06/10/20 12:38 71 100 06/10/20 12:34 68 120/59 06/10/20 12:33 72 100 06/10/20 12:28 81 100 06/10/20 12:24 71 102/57 06/10/20 12:23 74 100 06/10/20 12:18 77 98 06/10/20 12:13 77 97/57 98 06/10/20 12:03 68 95/53 89 06/10/20 12:00 97.7 F 68 18 100 06/10/20 11:55 69 100 06/10/20 11:52 65 92/52 06/10/20 11:50 92 H 98 06/10/20 11:49 77 91/50 06/10/20 11:47 77 89/47 06/10/20 11:45 76 98 06/10/20 11:42 80 96/54 06/10/20 11:40 79 89/46 99 06/10/20 11:39 72 94/53 06/10/20 11:35 82 99 06/10/20 11:30 86 101/51 98 06/10/20 11:29 90 95/54 06/10/20 11:26 85 108/56 06/10/20 11:25 92 H 97 06/10/20 11:24 91 H 102/54 06/10/20 11:23 111 H 117/55 83 L 06/10/20 11:21 116 H 109/55 06/10/20 11:20 102 H 100 06/10/20 11:18 88 109/59 06/10/20 11:16 91 H 118/60 83 L 06/10/20 11:15 86 100 06/10/20 11:14 84 119/57 06/10/20 11:12 81 132/66 06/10/20 11:10 45 L 83 L 06/10/20 11:08 69 79 L 06/10/20 11:05 85 100 06/10/20 10:54 75 99 06/10/20 10:52 73 136/85 06/10/20 10:49 71 100 06/10/20 10:44 74 98 06/10/20 10:39 79 99 06/10/20 10:34 76 98 06/10/20 10:29 79 99 06/10/20 10:23 83 134/99 96 06/10/20 10:19 77 100 06/10/20 10:13 82 98 06/10/20 09:53 83 125/62 06/10/20 09:21 94 H 120/63 06/10/20 09:05 80 100 06/10/20 09:00 88 100 06/10/20 08:55 104 H 100 06/10/20 08:50 72 99 06/10/20 08:45 72 99 Intake and Output 06/10/20 06/11/20 06/11/20 22:59 06:59 14:59 Intake Total 1000 120 Output Total 1700 Balance -700 120 Intake: IV 1000 Oral 120 Output: Urine 1250 Indwelling Catheter 1000 Emesis 450 Other: Total, Intake Amount 120 Total, Output Amount 1450 Estimated Blood Loss 800 - Exam Breasts: Present: deferred Cardiovascular: Present: Regular rate Lungs: Present: Normal air movement Abdomen: Present: normal appearance, soft Vulva: both: normal Uterus: Present: normal Extremities: Present: normal Deep Tendon Reflex Grade: Normal +2 Incision: Present: normal, dry, intact (No s/sx of infection. No drainage noted. )
[2020-06-11] MEDS ORDERED: PRENATAL VIT27-FE FUMARATE-FOLIC ACID VIT TAB PO SCH (10:00)
[2020-06-11] MEDS ORDERED: FERROUS SULFATE 325 MG TAB PO SCH (10:00)
[2020-06-11 10:18] LABS: Hemoglobin 10.6 gm/dl (10.1-14.3)
--- NOTE | 2020-06-11 18:15 | Post Anesthesia Evaluation ---
- Post Anesthesia Evaluation Patient Participated: Yes Airway Patent: Yes Stable Respiratory Function: Yes Nausea/Vomiting: No Temp > 96.8F: Yes Pain Manageable: Yes Adequeate Hydration: Yes Anesthesia Complications: No Block Receding Appropriately: Yes Patient on Ventilator: No
[2020-06-11 19:48] LABS: Hematocrit 30.5 % (30.3-42.9); Hemoglobin 9.9 gm/dl (10.1-14.3); Mean Corpuscular HGB Conc 33 % (30-34); Mean Corpuscular Volume 79 fl (79-97); Platelet Count 195 K/mm3 (140-440); Red Blood Count 3.86 M/mm3 (3.65-5.03); Red Cell Distribution Width 16.1 % (13.2-15.2)
[2020-06-11 20:10] LABS: Alanine Aminotransferase 8 units/L (7-56); Uric Acid 6.3 mg/dL (3.5-7.6)
[2020-06-11] MEDS ORDERED: IBUPROFEN 800 MG TAB PO PRN (20:41)
[2020-06-11] MEDS ORDERED: MAGNESIUM SULFATE 4 GM/100 ML BAG IV ONE ×2 (21:15→21:28)
[2020-06-11] MEDS ORDERED: LACTATED RINGERS 1,000 ML ONE (21:15)
[2020-06-11] MEDS ORDERED: hydrALAZINE 20 MG/1 ML INJ IV PRN (21:28)
[2020-06-11] MEDS: LACTATED RINGERS 1,000 ML IV SCH (23:06)
[2020-06-11] MEDS: MAGNESIUM SULFATE 40GM/1000ML 40 GM/1,000 ML BAG IV SCH (23:39)
[2020-06-12] MEDS: LACTATED RINGERS 1,000 ML IV SCH ×2 (06:48→19:13)
[2020-06-12] MEDS ORDERED: diphenhydrAMINE 50 MG CAP PO NR (07:00)
[2020-06-12] MEDS: KETOROLAC 30 MG/1 ML INJ IV SCH ×2 (08:07→14:18)
--- NOTE | 2020-06-12 09:04 | Progress Note ---
Assessment and Plan A: 29 y.o s/p primary after failed IOL, pre e on magnesium infusion, asymptomatic. BP's ranges 110's-150's/50-80's. P: Continue with magnesium infusion. D/t be turned off at 1106 pm. Will transfer to mother baby if BP's remain stable. Continue with care. Subjective - Subjective Date of service: 06/12/20 (Pt doing well this AM) Principal diagnosis: s/p primary for failed IOL, now pre e on mag Patient reports: appetite normal, voiding normally, pain well controlled : doing well Objective - Vital Signs Latest vital signs: Vital Signs Temp Pulse Resp BP BP Pulse Ox 06/12/20 08:54 90 117/59 06/12/20 07:54 98.3 F 96 H 18 130/61 130/61 06/12/20 07:07 86 130/58 06/12/20 06:47 98.0 F 18 06/12/20 06:07 93 H 148/79 06/12/20 05:07 89 120/59 06/12/20 04:10 95 H 139/84 06/12/20 02:06 87 139/81 06/12/20 00:30 18 06/11/20 23:30 18 06/11/20 23:12 83 129/70 06/11/20 19:30 98.6 F 74 18 141/71 06/11/20 18:35 153/76 06/11/20 18:10 156/86 06/11/20 17:55 20 06/11/20 16:08 98.4 F 88 18 144/65 99 06/11/20 15:21 20 Intake and Output 06/11/20 06/12/20 06/12/20 22:59 06:59 14:59 Intake Total 1140 962.5 240 Output Total 1100 900 Balance 1140 -137.5 -660 Intake: IV 962.5 Lactated Ringers 1,000 ml 962.5 @ 125 mls/hr IV DIRECT TOMMY Rx#:[id number] Oral 360 240 Intake, Free Water 780 Output: Urine 1100 900 Void 1100 900 Other: Total, Intake Amount 360 240 Total, Output Amount 500 900 # Voids Void 1 - Exam Breasts: Present: deferred Cardiovascular: Present: Regular rate Lungs: Present: Normal air movement Abdomen: Present: normal appearance, soft Vulva: both: normal Uterus: Present: normal, firm Extremities: Present: normal Deep Tendon Reflex Grade: Normal +2 Incision: Present: normal, dry, intact (No s/sx of infection. No drainage noted. ) Comments: Pt denies DEL VALLE, blurred vision, spots before her eyes, chest pain, shortness of breath, and upper abdominal pain. - Labs Labs: Abnormal lab results 06/11/20 06/11/20 06/12/20 Range/Units 18:33 18:33 00:08 WBC 13.0 H (4.5-11.0) K/mm3 Hgb 9.9 L (10.1-14.3) gm/dl MCH 26 L (28-32) pg RDW 16.1 H (13.2-15.2) % Magnesium 3.20 H (1.7-2.3) mg/dL Lactate Dehydrogenase 235 H (91-180) units/L 06/12/20 Range/Units 05:46 WBC (4.5-11.0) K/mm3 Hgb (10.1-14.3) gm/dl MCH (28-32) pg RDW (13.2-15.2) % Magnesium 4.10 H (1.7-2.3) mg/dL Lactate Dehydrogenase (91-180) units/L
[2020-06-12] MEDS: HYDROcodone/ACETAMINOPHEN 5-325 MG TAB PO PRN (09:53)
[2020-06-12] MEDS: MAGNESIUM SULFATE 40GM/1000ML 40 GM/1,000 ML BAG IV SCH (19:13)
[2020-06-13] MEDS: HYDROcodone/ACETAMINOPHEN 5-325 MG TAB PO PRN (05:33)
--- NOTE | 2020-06-13 09:45 | Discharge Summary ---
Providers - Providers Date of Admission: 06/09/20 15:21 Date of discharge: 06/13/20 (Pt has very strong desire to go home. ) Attending physician: MALOU SIEGEL 06/10/20 23:49 Consult to Dye Room Helper [CONS] Routine Reason For Exam: Primary care physician: MALOU SIEGEL Hospitalization Reason for admission: active labor Delivery: Procedure: primary low transverse Episiotomy: none Laceration: none Incision: normal, dry, intact, other (No s/sx of infection, no drainage noted. ) complications: none Discharge diagnosis: IUP at term delivered baby: female Pertinent studies: Pt denies DEL VALLE blurred vision, spots before her eyes, chest pain, shortness of breath, upper abdominal pain. We discussed how to take a proper blood pressure at home with a wrist cuff, and when to take blood pressure and blood pressure medication (Labetalol 200mg twice daily). Pt instructed that is she develops DEL VALLE, blurred vision, spots before her eyes, chest pain, shortness of breath, upper abdominal pain, or if her blood pressures readings at home are 160/110 and she has taken a second blood pressure 15 minutes after first blood pressure and it is still 160/110 or greater to call the reconciling clerk provider for further instructions. She was also instructed to make a blood pressure and incision check appointment in the office in 1 week. Pt verbalized understanding of these instructions. Hospital course: S: Pt doing well. Ambulating, voiding, and passing flatus okay. BC: None at this time. Pt has a very strong desire to go home at this time. O: Blood pressure readings mostly 110's-150's/60-80's. H/H 9.9/30.5. Incision open to air, intact, no s/sx of infection and no drainage noted. A: 29 y.o. s/p primary , s/p mag infusion with BP's WNL. Stable , stable for discharge home. P: Discharge home with instructions. Pt to schedule an incision and blood pressure check in the office in 1 week. To take Labetalol 200mg twice daily and take blood pressures at least once daily. Condition at discharge: Good Disposition: DC-01 TO HOME OR SELFCARE Plan - Discharge Medications Prescriptions: Ferrous Sulfate [Feosol 325 MG tab] 325 mg PO BID #60 tablet labetaloL [Labetalol 200mg TAB] 200 mg PO BID #60 tablet Ibuprofen [Motrin 800 MG tab] 800 mg PO Q6H PRN #30 tablet PRN Reason: Pain oxyCODONE /ACETAMINOPHEN [Percocet 5/325 mg] 1 - 2 tab PO Q6HR PRN #20 tablet PRN Reason: Pain Blood Pressure Test Kit-Wrist [Wrist Blood Pressure Monitor] 1 each MC BID #1 kit - Provider Discharge Summary Activity: routine, no sex for 6 weeks, no heavy lifting 4 weeks, no strenuous exercise Diet: routine Instructions: routine Additional instructions: [] Smoking cessation referral if applicable(refer to patient education folder for contact #) [] Refer to [facility]'s [facility] Booklet Call your doctor immediately for: * Fever > 100.5 * Heavy vaginal bleeding ( >1 pad per hour) * Severe persistent headache * Shortness of breath * Reddened, hot, painful area to leg or breast * Drainage or odor from incision. * Keep incision clean and dry at all times and follow doctor's instructions regarding bathing/showering - Follow up plan Follow up: MALOU SIEGEL MD [Primary Care Provider] - 7 Days (Congratulations!! Please take your blood pressure and blood pressure medication as prescribed. Please schedule a blood pressure check in the office in 1 week. Please schedule an incision check in the office in 1 week. If you have any questions or concerns after discharge, please do not hesitate to call the office at [phone].)
[2020-06-13 13:21] VITALS: BP 125/71
== END 2020-06-13 14:20 | disposition home or self-care (01) | DRG 766 ==
LOC: LD 15:21 → APU 06-10 19:19 → OB 06-10 23:39 → LD 06-11 21:37 → OB 06-13 01:24
PROVIDERS: ADMIT Obstetrics & Gynecology; ATTEND Obstetrics & Gynecology
PROC: 10D00Z1 Extraction of Products of Conception, Low, Open Approach (ICD-10-PCS; principal; 2020-06-10)
DX: O13.3 Gestational [pregnancy-induced] hypertension without significant proteinuria, third trimester (principal); O61.0 Failed medical induction of labor; O76 Abnormality in fetal heart rate and rhythm complicating labor and delivery; Z37.0 Single live birth; Z3A.39 39 weeks gestation of pregnancy; Z20.828 Contact with and (suspected) exposure to other viral communicable diseases
CPT/HCPCS: 36415; 59200; 80048; 80076; 82565; 83615; 83735; 84450; 84460; 84550; 85014; 85018; 85027; 85610; 85730; 86592; 86850; 86900; 86901; G0378; J0595; J0690; J1170; J1885; J2250; J2270; J2405; J2590; J2765; J3010; J3475; J3490; J7030; J7120; U0003-CS